=== PATIENT | female | born 1935 | race Caucasian/White ===

== ENCOUNTER 2020-04-13 00:50 | Outpatient (CLI) | payer MEDICARE, SELFPAY ==
[2020-04-13 19:21] LABS: SARS-CoV-2 RNA PCR Negative
== END 2020-04-13 00:51 | disposition home or self-care (01) ==
LOC: ANHCOVIDDT 00:50
PROVIDERS: PCP Internal Medicine; Visit Provider Internal Medicine Gastroenterology
DX: Z01.812 Encounter for preprocedural laboratory examination (principal); Z20.828 Contact with and (suspected) exposure to other viral communicable diseases
CPT/HCPCS: 87635; C9803; U0003

== ENCOUNTER 2020-04-15 01:15 | Day surgery (SDC) | payer MEDICARE, SELFPAY ==
[2020-04-06 09:17] VITALS: BMI 31.2
--- NOTE | 2020-04-15 09:28 | WPDANESEPPF ---
Anes - Initial Pre Proc Eval Procedure: Operation Date: 04/15/20 10:00 Proposed Procedures p Esophagogastroduodenoscopy - Owen Watt MD Date/Time: 04/15/20 09:28 Surgeon: Owen Watt MD Pre Op Diagnosis: Gerd/ Chest Pain Patient Data Age: 85 Gender: F Height: 1.55 m Weight: 75 kg Allergies Allergy/AdvReac Type Severity Reaction Status Date / Time meperidine Allergy Unknown Unknown Verified 04/15/20 09:29 simvastatin Allergy Unknown Unknown Verified 04/15/20 09:29 Home Medications Medication Instructions Recorded Confirmed Type sitagliptin 100 mg tablet 100 mg PO DAILY #90 tablet 06/11/19 04/06/20 Rx aspirin 81 mg tablet,delayed 81 mg PO DAILY 08/03/19 04/06/20 History release calcium carb-ergocalciferol (vit tablet PO 08/03/19 03/24/20 History D2) 600 mg-125 unit tablet multivitamin 1 tablet PO DAILY 08/03/19 04/06/20 History omeprazole 40 mg capsule,delayed 40 mg PO BID 08/03/19 04/06/20 History release prednisolone sodium phosphate 10 10 mg PO DAILY 08/03/19 04/06/20 History mg disintegrating tablet amitriptyline 25 mg tablet 25 mg PO ONCE #90 tablet 09/15/19 04/06/20 Rx candesartan 32 mg tablet 32 mg PO DAILY #90 tablet 09/15/19 04/06/20 Rx amlodipine 5 mg tablet 5 mg PO DAILY #90 tablet 10/12/19 04/06/20 Rx cyclobenzaprine 10 mg tablet 10 mg PO TID PRN #90 tablet 10/14/19 04/06/20 Rx carvedilol 12.5 mg tablet See Rx Instructions .ROUTE 12/14/19 04/06/20 Rx .COMPLEX #180 tablet pravastatin 40 mg tablet 40 mg PO DAILY #90 tablet 01/25/20 04/06/20 Rx ferrous sulfate 325 mg (65 mg 325 mg PO DAILY 01/26/20 04/06/20 History iron) tablet furosemide 40 mg tablet 40 mg PO QAM 01/26/20 04/06/20 History Patient hx anesthesia problems: none Family hx anesthesia problems: none PMFSH Past Medical History Medical History (Updated 04/15/20 @ 09:31 by Bandar Obrien MD) Anxiety Arthritis Cancer breast, s/p mastectomy Essential (primary) hypertension Gastroesophageal reflux disease Left leg swelling Mixed hyperlipidemia Obesity Rupture of left biceps tendon Type 2 diabetes mellitus with stage 1 chronic kidney disease A1c 6.08 aug 2019 Surgical History Surgical History Breast cancer right mastectomy December 2018 H/O shoulder surgery bilateral - jaydon Davis PAMELA Social History Social History Smoking status: Former smoker Second hand tobacco smoke exposure: No Smoking end date: 08/05/92 Alcohol intake: current Living arrangements: with family Anes - Eval Final PreProcedure Day of Procedure 04/15/20 09:28 Patient weight: obese Heart: regular rate and rhythm Lungs: clear to auscultation and normal air movement Airway: Mallampati scale class II Neurological: alert and oriented Last oral intake: >/= 8 hours ASA classification: III Emergent: no Anesthetic plan: proceed Anesthesia type and monitoring: general GIVS Informed Consent: The patient's anesthetic plan and its attendant risks and benefits were discussed with the patient/family/POA. Questions were solicited and answers provided to the satisfaction of the patient/family/POA.
[2020-04-15 09:32] VITALS: BP 169/75; PULSE 79; RESP 18; TEMP 36.6; O2SAT 99; BMI 31.8
--- NOTE | 2020-04-15 09:36 | WPDGICN ---
Assessment and Plan Assessment and plan (1) Atypical chest pain: Code(s): R07.89 - Other chest pain Status: Acute Assessment and Plan: Chest pain very suspicious for acid reflux. However this is poorly responsive to acid reducing proton pump inhibitors. Plan is for EGD to assess more thoroughly. Further recommendations after endoscopy. Plan to continue Prilosec 40 mg p.o. b.i.d. until that time. Consider the addition of Gas-X or simethicone or Carafate. (2) Gastroesophageal reflux disease: Code(s): K21.9 - Gastro-esophageal reflux disease without esophagitis Status: Acute (3) Malignant neoplasm of breast (female), unspecified site: Code(s): C50.919 - Malignant neoplasm of unspecified site of unspecified female breast Status: Acute GI Consult Note Consult date/time: 04/15/20 09:36 HPI: Vanesa Mcdonnell is a 85 year old female seen for evaluation of chest pain. Patient complains of chest pain prior abdominal E at night but occasionally happens during the day. Typically in the substernal area. She states it is sometimes burning in nature sometimes improves with Tums. It is not related to food intake. Patient has taken omeprazole twice a day for many years. Recently has been on Prilosec 40 mg p.o. b.i.d. with no change in frequency of symptoms. She does states pain improves after belching for instance. Recent history is significant for breast cancer status post mastectomy in January of 2019. Review of Systems Review of Systems: All systems reviewed & are unremarkable except as noted in HPI and below PMFSH Past Medical History Medical History Anxiety Arthritis Cancer breast, s/p mastectomy Essential (primary) hypertension Gastroesophageal reflux disease Left leg swelling Mixed hyperlipidemia Obesity Rupture of left biceps tendon Type 2 diabetes mellitus with stage 1 chronic kidney disease A1c 6.08 aug 2019 Surgical History Surgical History Breast cancer right mastectomy December 2018 H/O shoulder surgery bilateral - jaydon Davis Family History Family History Sibling Family history of malignant neoplasm of breast in first degree relative Mother Family history of heart disease in male family member before age 55 Social History Social History Smoking status: Former smoker Second hand tobacco smoke exposure: No Smoking end date: 08/05/92 Alcohol intake: current Living arrangements: with family Meds Home Medications and Allergies Home Medications Medication Instructions Recorded Confirmed Type sitagliptin 100 mg tablet 100 mg PO DAILY #90 tablet 06/11/19 04/06/20 Rx aspirin 81 mg tablet,delayed 81 mg PO DAILY 08/03/19 04/06/20 History release calcium carb-ergocalciferol (vit tablet PO 08/03/19 03/24/20 History D2) 600 mg-125 unit tablet multivitamin 1 tablet PO DAILY 08/03/19 04/06/20 History omeprazole 40 mg capsule,delayed 40 mg PO BID 08/03/19 04/06/20 History release prednisolone sodium phosphate 10 10 mg PO DAILY 08/03/19 04/06/20 History mg disintegrating tablet amitriptyline 25 mg tablet 25 mg PO ONCE #90 tablet 09/15/19 04/06/20 Rx candesartan 32 mg tablet 32 mg PO DAILY #90 tablet 09/15/19 04/06/20 Rx amlodipine 5 mg tablet 5 mg PO DAILY #90 tablet 10/12/19 04/06/20 Rx cyclobenzaprine 10 mg tablet 10 mg PO TID PRN #90 tablet 10/14/19 04/06/20 Rx carvedilol 12.5 mg tablet See Rx Instructions .ROUTE 12/14/19 04/06/20 Rx .COMPLEX #180 tablet pravastatin 40 mg tablet 40 mg PO DAILY #90 tablet 01/25/20 04/06/20 Rx ferrous sulfate 325 mg (65 mg 325 mg PO DAILY 01/26/20 04/06/20 History iron) tablet furosemide 40 mg tablet 40 mg PO QAM 01/26/20 04/06/20 History Allergies Allergy/AdvReac Type Severity
[2020-04-15] MEDS: LACTATED RINGERS 1,000 ML 150 ML IV CONT (09:51)
[2020-04-15] MEDS: BENZOCAINE (*SP) 60 ML SPRAY CAN (HURRICAINE) 1 SPRAY MUCOUS MEM (10:06)
[2020-04-15 10:33] VITALS: BP 145/70; PULSE 72; RESP 21; O2SAT 97
[2020-04-15 10:43] VITALS: BP 146/65; PULSE 73; RESP 21; O2SAT 95
[2020-04-15] MEDS: HEPARIN SOD FLUSH 500 UNITS/5 ML SYRINGE IV PUSH (11:05)
[2020-04-15] MEDS: CENTRAL LINE FLUSH 10 ML IV PUSH (11:06)
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
== END 2020-04-15 11:58 | disposition home or self-care (01) ==
PROVIDERS: PCP Internal Medicine; Visit Provider Internal Medicine Gastroenterology
PROC: 0DJ08ZZ Inspection of Upper Intestinal Tract, Via Natural or Artificial Opening Endoscopic (ICD-10-PCS; CPT 43235; principal; 2020-04-15 10:00)
DX: R07.89 Other chest pain (principal); K44.9 Diaphragmatic hernia without obstruction or gangrene; K21.9 Gastro-esophageal reflux disease without esophagitis; E78.2 Mixed hyperlipidemia; I12.9 Hypertensive chronic kidney disease with stage 1 through stage 4 chronic kidney disease, or unspecified chronic kidney disease; E11.22 Type 2 diabetes mellitus with diabetic chronic kidney disease; N18.1 Chronic kidney disease, stage 1; Z90.11 Acquired absence of right breast and nipple; Z85.3 Personal history of malignant neoplasm of breast; Z87.891 Personal history of nicotine dependence; Z79.82 Long term (current) use of aspirin; Z79.84 Long term (current) use of oral hypoglycemic drugs; E66.9 Obesity, unspecified; Z68.31 Body mass index [BMI] 31.0-31.9, adult
CPT/HCPCS: 43235; J2704; J7120

== ENCOUNTER 2020-06-17 14:43 | Inpatient (IN) | payer MEDICARE, SELFPAY ==
[2020-06-17] VITALS (11 sets, daily range): BP systolic 89–126; BP diastolic 41–68; PULSE 65–80; RESP 14–47; TEMP 36.2–37.1; O2SAT 93–99
--- NOTE | ~2020-06-17 | XR_ITS ---
XR chest 1V portable DATE: 06/17/2020 18:07 INDICATION: Shortness of breath, cough. Weakness. Technique 2 diabetes. Hypertension. TECHNIQUE: Portable AP upright view on 06/17/2020 at 1758 hours COMPARISON: None FINDINGS: There is cardiac magnet. There is aortic arch calcification. There is a left Port-A-Cath ca theter, the tip overlying the superior vena cava. There is no evidence of pneumothorax. There are patchy infiltrates bilaterally, most prominent in the mid to upper lung zones, right greate r than left, in addition to right lower lung infiltrate or atelectasis. There is mild elevation of the right leaf of diaphragm. There is diffuse osteopenia. IMPRESSION: Patchy bilateral pulmonary infiltrates Left Port-A-Cath catheter tip overlying superior vena cava Cardiomegaly, aortic atherosclerosis Reviewed, dictated and finalized at location A. [employer] SERVICES MANAGER
--- NOTE | ~2020-06-17 | XR_ITS ---
EXAMINATION: XR chest 1V portable DATE: 06/20/2020 10:35 INDICATION: COVID-19 pneumonia. TECHNIQUE: A single frontal view of the chest was obtained. COMPARISON: Chest single view 06/17/2020 FINDINGS: Again seen is mild elevation of right hemidiaphragm. There are airspace opacities in right mid and upper lung zones and left lower and upper lung zones. No pleural effusion or pneumothorax. Th e heart size is normal. There is a left internal jugular port with tip in superior vena cava. IMPRESSION: 1. Airspace opacities in right mid and upper lung zones and left lower and upper lung zones with inte rval improvement, consistent with pneumonia. Reviewed, dictated and finalized at location A. H COLORER IMPRESSION: 1. Airspace opacities in right mid and upper lung zones and left lower and uppe r lung zones with interval improvement, consistent with pneumonia.
--- NOTE | 2020-06-17 15:37 | ECG_ITS ---
Measurements Intervals Boring Rate: 70 P: 41 DE: 137 QRS: 32 QRSD: 78 T: 48 QT: 357 QTc: 387 Interpretive Statements SINUS RHYTHM WITH SINUS ARRHYTHMIA BORDERLINE R WAVE PROGRESSION, ANTERIOR LEADS BORDERLINE ECG Electronically Signed On 06-17-2020 16:44:55 RELIABILITY MANAGER by Errol Caballero D.O.
[2020-06-17 15:50] LABS: Basophils Percent Auto 0.1 % (0.2-1.2); Hematocrit 36.6 % (37.0-47.0); Hemoglobin 11.5 g/dL (12.0-15.0); Immature Granulocyte Absolute 0.04 K/mm3 (0.00-0.031); Immature Granulocyte Percent A 0.6 % (0-0.5); Lymphocytes Absolute Auto 1.02 K/mm3 (0.9-3.2); Lymphocytes Percent Auto 14.2 % (18.3-44.2); Mean Corpuscular HGB Conc 31.4 g/dl (32-36); Mean Corpuscular Hemoglobin 31.5 pg (26-34); Mean Corpuscular Volume 100.3 fl (80-100); Mean Platelet Volume 10.8 fl (7.4-10.4); Monocytes Absolute Auto 0.5 K/mm3 (0.1-0.6); Neutrophils Absolute Auto 5.6 K/mm3 (1.3-6.7); Neutrophils Percent Auto 78.1 % (45.5-73.1); Platelet Count Result 190 k/mm3 (150-375); Red Blood Count 3.65 M/mm3 (4.2-5.4); Red Cell Distribution Width 13.2 % (11.5-14.5); White Blood Count 7.2 K/mm3 (4.5-10.0)
[2020-06-17 16:04] LABS: Alanine Aminotransferase 24 U/L (4-35); Albumin Level 3.6 g/dL (3.5-5.1); Alkaline Phosphatase 75 U/L (38-126); Anion Gap 9 mmol/L (8-16); Aspartate Amino Transferase 45 U/L (14-36); Atypical Lymphocytes Present; Bilirubin,Total 0.6 mg/dL (0.2-1.3); Blood Urea Nitrogen 32 mg/dL (7-17); Calcium 8.6 mg/dL (8.4-10.2); Carbon Dioxide 27 mmol/L (22-30); Chloride 101 mmol/L (98-107); Estimated CRCL calculation 27 ml/min; Estimated Glomerular Filt Rate 36; Glucose 98 mg/dL (65-105); Platelet Estimate Adequate (Adequate); Potassium 4.3 mmol/L (3.4-5.0); Sodium 137 mmol/L (137-145)
--- NOTE | 2020-06-17 17:40 | ED.WEAKNESS ---
HPI - Weakness General Chief complaint: Shortness of Breath/Dyspnea Stated complaint: weakness/ SOB Time Seen by Provider: 06/17/20 17:39 History of Present Illness HPI Narrative: A few dyas of what she describes as cold symptoms including cough, headache, and fatigue. Began feeling SOB today. She says that she has not been exposed to anyone with COVID-19, but on further investigation it turns out that her spouse is currently in the hospital with COVID-19 pneumonia. Related Data Home Medications Medication Instructions Recorded Confirmed aspirin 81 mg tablet,delayed 81 mg PO DAILY 08/03/19 06/17/20 release calcium carb-ergocalciferol (vit 1 tablet PO DAILY 08/03/19 06/17/20 D2) 600 mg-125 unit tablet multivitamin 1 tablet PO DAILY 08/03/19 06/17/20 omeprazole 40 mg capsule,delayed 40 mg PO BID 08/03/19 06/17/20 release prednisolone sodium phosphate 10 10 mg PO DAILY 08/03/19 06/17/20 mg disintegrating tablet ferrous sulfate 325 mg (65 mg 325 mg PO DAILY 01/26/20 06/17/20 iron) tablet amitriptyline 25 mg PO DAILY 06/17/20 06/17/20 Allergies Allergy/AdvReac Type Severity Reaction Status Date / Time meperidine Allergy Unknown Unknown Verified 06/17/20 21:55 simvastatin Allergy Unknown Unknown Verified 06/17/20 21:55 gluten Allergy Diarrhea Verified 06/18/20 13:10 Review of Systems Review of Systems: All systems reviewed & are unremarkable except as noted in HPI and below Constitutional: Constitutional: Reports fatigue, Denies fever(s) and Reports weakness ENT: Denies sore throat Cardiovascular: Cardiovascular: Denies chest pain Respiratory: Respiratory: Reports chest congestion, Reports cough and Reports dyspnea Gastrointestinal: Gastrointestinal: Denies nausea and Denies vomiting Genitourinary: Genitourinary: Denies hematuria and Denies dysuria Musculoskeletal: Musculoskeletal: Reports myalgias Neurologic: Denies confusion and Reports weakness Endocrine: Endocrine: Reports fatigue and Denies polydipsia [facility] Past Medical History Medical History Anxiety Arthritis Cancer breast, s/p mastectomy Essential (primary) hypertension Gastroesophageal reflux disease Left leg swelling Mixed hyperlipidemia Obesity Right rotator cuff tear Rupture of left biceps tendon Type 2 diabetes mellitus with stage 1 chronic kidney disease A1c 6.08 aug 2019 Surgical History Surgical History Breast cancer right mastectomy December 2018 H/O shoulder surgery bilateral - jaydon Davis Family History Family History Sibling Family history of malignant neoplasm of breast in first degree relative Mother Family history of heart disease in male family member before age 55 Social History Social History Smoking status: Never smoker Second hand tobacco smoke exposure: No Smoking end date: 08/05/92 Alcohol intake: current Drinks per week: 2 Substance use: never Gender identity (if verbalized by the patient): Female Spiritual care concerns: No Exam Const: General: no acute distress, alert and ill appearing Orientation/consciousness: patient oriented x3 HENMT: Head: normal to inspection Neck: Neck: normal visual inspection and no lymphadenopathy Chest: Chest palpation & inspection: normal inspection of the chest and no tenderness Resp: Effort & Inspection: tachypneic Auscultation: crackles and rhonchi Cardio: Rate: regular rate Rhythm: regular rhythm GI: GI Palp: Yes Soft to palpation and No Tenderness to palpation present (GI) Skin: General skin exam: normal color Neuro: General: patient oriented x3, moves all extremities, no focal motor deficits and CN's II-XI intact bilaterally Speech: normal speech Extrem: General: no edema Course Vital S
--- NOTE | 2020-06-17 19:32 | PM.IMHP ---
H&P: HPI History of Present Illness Date/Time: 06/17/20 19:32 Chief complaint: SOB. Narrative: Vanesa Mcdonnell is a 85 year old female with PMHx significant for HTN, Hypercholesterolemia, that presented to ED due to sob, cough productive of green sputum for several days, is been admitted to the hospital with Covid 19. Has had fevers, chills, denies n/v/abdominal pain/diarrhea. Preliminary work up in ED showed extensive lung infiltrates on chest xr. Has had decreased appetite as well but no loss of sense of smell or taste. Review of Systems Review of Systems: Narrative: sob, productive cough. Constitutional: Constitutional: Reports chills, Reports fatigue, Reports fever(s) and Reports poor appetite Eyes: Eyes: Reports no additional eye complaints ENT: Comments: no sore throat, no nasal congestion, no ear ache. Cardiovascular: Comments: no chest pain, no leg swelling Respiratory: Comments: sob, productive cough. Gastrointestinal: Comments: no n/v/abdominal pain/diarrhea. Musculoskeletal: Comments: no joint pain or swelling. Integumentary/Breasts: Comments: no rashes. Neurologic: Comments: no sensory motor deficit. Hematologic/Lymphatic: Comments: No LAP PMFSH Past Medical History Medical History (Updated 06/17/20 @ 23:17 by Valerie Horner MD) Anxiety Arthritis Cancer breast, s/p mastectomy Essential (primary) hypertension Gastroesophageal reflux disease Left leg swelling Mixed hyperlipidemia Obesity Right rotator cuff tear Rupture of left biceps tendon Type 2 diabetes mellitus with stage 1 chronic kidney disease A1c 6.08 aug 2019 Surgical History Surgical History Breast cancer right mastectomy December 2018 H/O shoulder surgery bilateral - jaydon Davis Family History Family History Sibling Family history of malignant neoplasm of breast in first degree relative Mother Family history of heart disease in male family member before age 55 Social History Social History Smoking status: Never smoker Second hand tobacco smoke exposure: No Smoking end date: 08/05/92 Alcohol intake: current Drinks per week: 2 Substance use: never Gender identity (if verbalized by the patient): Female Spiritual care concerns: No Meds Home Medications and Allergies Home Medications Medication Instructions Recorded Confirmed Type sitagliptin 100 mg tablet 100 mg PO DAILY #90 tablet 06/11/19 06/17/20 Rx aspirin 81 mg tablet,delayed 81 mg PO DAILY 08/03/19 06/17/20 History release calcium carb-ergocalciferol (vit 1 tablet PO DAILY 08/03/19 06/17/20 History D2) 600 mg-125 unit tablet multivitamin 1 tablet PO DAILY 08/03/19 06/17/20 History omeprazole 40 mg capsule,delayed 40 mg PO BID 08/03/19 06/17/20 History release prednisolone sodium phosphate 10 10 mg PO DAILY 08/03/19 06/17/20 History mg disintegrating tablet carvedilol 12.5 mg tablet See Rx Instructions .ROUTE 12/14/19 06/17/20 Rx .COMPLEX #180 tablet pravastatin 40 mg tablet 40 mg PO DAILY #90 tablet 01/25/20 06/17/20 Rx ferrous sulfate 325 mg (65 mg 325 mg PO DAILY 01/26/20 06/17/20 History iron) tablet amlodipine 5 mg tablet 5 mg PO DAILY #90 tablet 04/26/20 06/17/20 Rx cyclobenzaprine 10 mg tablet 10 mg PO TID PRN #90 tablet 05/17/20 06/17/20 Rx candesartan 32 mg tablet 32 mg PO DAILY #90 tablet 05/27/20 06/17/20 Rx furosemide 40 mg tablet 40 mg PO QAM #30 tablet 05/27/20 06/17/20 Rx amitriptyline 25 mg PO DAILY 06/17/20 06/17/20 History Allergies Allergy/AdvReac Type Severity Reaction Status Date / Time meperidine Allergy Unknown Unknown Verified 06/17/20 21:55 simvastatin Allergy Unknown Unknown Verified 06/17/20 21:55 Vital Signs Vital Signs - 24 hr 06/17/20 15:25 06/17/20 17:40 06/17/20 17:41 Temperature 98.7 F Pulse Rate
[2020-06-17] MEDS: ALBUTEROL SULFATE (*SP) AEROSOL 1 PUFF 2 PUFF INHALATION (19:42)
[2020-06-17] MEDS: DEXAMETHASONE SOD PHOS INJ 4 MG/ML VIAL 6 MG IV PUSH (20:03)
--- NOTE | 2020-06-17 21:20 | PC.NURSE ---
This patient, Vanesa Mcdonnell, was admitted to [facility] Surg Room 321-01. Patient/family oriented to hospital policies and general routines including ID bracelet, bed and alarms, visiting hours, pain management, procedures, bathroom and other care routines, personal items, smoking policy, room service/diet, and visiting hours. Information on how to activate the Rapid Response Team has been discussed. Patient/Family are encouraged to report perceived risks to care and to ask questions if they do not understand what they are told or what they should do.
[2020-06-17] MEDS: carvediloL 12.5 MG TABLET BY MOUTH (22:43)
[2020-06-17] MEDS: HEPARIN SODIUM 5,000 UNITS/ML VIAL 5000 UNITS SUB-Q (22:43)
[2020-06-18] VITALS (10 sets, daily range): BP systolic 97–127; BP diastolic 48–90; PULSE 60–770; RESP 18–20; TEMP 36.1–36.7; O2SAT 92–98
[2020-06-18 06:25] LABS: Basophils Percent Auto 0.3 % (0.2-1.2); Hematocrit 33.1 % (37.0-47.0); Hemoglobin 10.4 g/dL (12.0-15.0); Immature Granulocyte Absolute 0.03 K/mm3 (0.00-0.031); Immature Granulocyte Percent A 0.8 % (0-0.5); Lymphocytes Absolute Auto 0.48 K/mm3 (0.9-3.2); Lymphocytes Percent Auto 12.5 % (18.3-44.2); Mean Corpuscular HGB Conc 31.4 g/dl (32-36); Mean Corpuscular Hemoglobin 31.7 pg (26-34); Mean Corpuscular Volume 100.9 fl (80-100); Mean Platelet Volume 10.7 fl (7.4-10.4); Monocytes Absolute Auto 0.1 K/mm3 (0.1-0.6); Monocytes Percent Auto 2.3 % (2.6-8.5); Neutrophils Absolute Auto 3.2 K/mm3 (1.3-6.7); Neutrophils Percent Auto 84.1 % (45.5-73.1); Platelet Count Result 182 k/mm3 (150-375); Red Blood Count 3.28 M/mm3 (4.2-5.4); Red Cell Distribution Width 13.2 % (11.5-14.5); White Blood Count 3.8 K/mm3 (4.5-10.0)
[2020-06-18 06:39] LABS: Alanine Aminotransferase 22 U/L (4-35); Albumin Level 3.2 g/dL (3.5-5.1); Alkaline Phosphatase 69 U/L (38-126); Anion Gap 7 mmol/L (8-16); Aspartate Amino Transferase 40 U/L (14-36); Bilirubin,Total 0.4 mg/dL (0.2-1.3); Blood Urea Nitrogen 34 mg/dL (7-17); Calcium 8.3 mg/dL (8.4-10.2); Carbon Dioxide 27 mmol/L (22-30); Chloride 100 mmol/L (98-107); Estimated CRCL calculation 29 ml/min; Estimated Glomerular Filt Rate 43; Glucose 183 mg/dL (65-105); Potassium 4.7 mmol/L (3.4-5.0); Sodium 134 mmol/L (137-145)
[2020-06-18] MEDS: amLODIPine BESYLATE 5 MG TABLET PO (08:47)
[2020-06-18] MEDS: AMITRIPTYLINE HCL 25 MG TABLET PO (08:47)
[2020-06-18] MEDS: CANDESARTAN CILEXETIL 16 MG TABLET 32 MG PO (08:48)
[2020-06-18] MEDS: PANTOPRAZOLE 40 MG TABLET PO ×2 (08:49→15:59)
[2020-06-18] MEDS: HEPARIN SODIUM 5,000 UNITS/ML VIAL 5000 UNITS SUB-Q ×2 (08:49→21:21)
[2020-06-18] MEDS: carvediloL 12.5 MG TABLET BY MOUTH ×2 (09:19→21:22)
[2020-06-18] MEDS: ALBUTEROL SULFATE (*SP) AEROSOL 1 PUFF 2 PUFF INHALATION ×3 (09:44→17:44)
[2020-06-18 13:19] LABS: SARS-CoV-2 RNA PCR Positive
[2020-06-18] MEDS: DEXAMETHASONE SOD PHOS INJ 4 MG/ML VIAL 6 MG IV PUSH (13:40)
[2020-06-18] MEDS: LOPERAMIDE HCL 2 MG CAPSULE PO (16:12)
--- NOTE | 2020-06-18 16:37 | PM.IMPN ---
Progress Note: A&P Assessment and Plan (1) Essential (primary) hypertension: Code(s): I10 - Essential (primary) hypertension Status: Acute Assessment and Plan: Continue home meds Continue to monitor (2) Type 2 diabetes mellitus with stage 1 chronic kidney disease: Code(s): E11.22 - Type 2 diabetes mellitus with diabetic chronic kidney disease; N18.1 - Chronic kidney disease, stage 1 Status: Acute Assessment and Plan: Carb consistent diet Accuchecks achs (3) Polymyalgia rheumatica: Code(s): M35.3 - Polymyalgia rheumatica Status: Acute Assessment and Plan: Stable (4) Multilobar lung infiltrate: Code(s): R91.8 - Other nonspecific abnormal finding of lung field Status: Acute Assessment and Plan: Started Rocephin and Zithromax due to extensive infiltrates Known close Covid 19 Awaiting Covid results Supportive care. 06/18/20 16:37 Patient is 85-year-old female with history of hypertension patient residing with her partner was positive for COVID-19 and currently in the hospital, patient presented with a productive cough with green sputum, shortness of breath, has had fever, patient positive COVID 9, currently patient states is feeling much better compared to when she arrived as patient was started on dexamethasone from emergency depart and chest x-ray showed infiltrate and patient was started on Rocephin azithromycin, is elderly suspect patient may have silent aspiration will add a Flagyl to her regimen, will continue to monitor the patient patient has not had fever while in the hospital and not requiring any oxygen, will continue to monitor further recommendation to follow Subjective Date/time seen: 06/18/20 16:37 Patient is 85-year-old female with history of hypertension patient residing with her partner was positive for COVID-19 and currently in the hospital, patient presented with a productive cough with green sputum, shortness of breath, has had fever, patient positive COVID 9, currently patient states is feeling much better compared to when she arrived as patient was started on dexamethasone from emergency depart and chest x-ray showed infiltrate and patient was started on Rocephin azithromycin, is elderly suspect patient may have silent aspiration will add a Flagyl to her regimen, will continue to monitor the patient patient has not had fever while in the hospital and not requiring any oxygen, will continue to monitor further recommendation to follow Review of Systems Review of Systems: All systems reviewed & are unremarkable except as noted in HPI and below Exam Narrative: Exam Narrative: Elderly frail Patient is comfortable, NAD HEENT: eyes are clear and none icteric LUNGS: Bilateral fair air entry with rhonchi HEART: RR S1S2 ABD: BS+, Soft and nontender Lower extremities: no edema SKIN: nonjaundiced Neuro: grossly intact. Objective Data Vital Signs Vital Signs: Vital Signs - 24 hr 06/17/20 17:40 06/17/20 17:41 06/17/20 17:42 Temperature Pulse Rate 73 74 71 Respiratory Rate 25 H 25 H Blood Pressure 126/63 126/63 Pulse Oximetry 98 99 06/17/20 17:54 06/17/20 18:31 06/17/20 19:00 Temperature Pulse Rate 79 Respiratory Rate 47 H 27 H Blood Pressure 89/68 L Pulse Oximetry 93 95 97 06/17/20 19:32 06/17/20 20:58 06/17/20 21:20 Temperature 97.2 F L Pulse Rate 72 65 65 Respiratory Rate 26 H 20 18 Blood Pressure 107/48 L 126/54 L 111/41 L Pulse Oximetry 95 95 99 06/17/20 22:43 06/18/20 00:00 06/18/20 01:09 Temperature 97.4 F L Pulse Rate 65 66 69 Respiratory Rate 18 Blood Pressure 97/58 L Pulse Oximetry 93 06/18/20 04:00 06/18/20 08:00 06/18/20 09:48 Temperature 97 F L 97.8 F Pulse Rate 72 60 Respiratory Rate 18 18 Blood Pressure 127/48 L 123/50 L Pulse Oximetry 95 98 92 06/18/20 12:00 Temperature 98.0 F Pulse Rate 71 Respiratory Rate 20 Blood Pressure 127/81 Pulse Oximetry 93
[2020-06-18] MEDS: metroNIDAZOLE 500 MG/ISO 100ML 500 MG/100 ML BAG 100 MG IVPB (20:02)
[2020-06-19] VITALS (9 sets, daily range): BP systolic 107–139; BP diastolic 51–67; PULSE 60–84; RESP 18–36; TEMP 36.3–36.7; O2SAT 92–98
[2020-06-19] MEDS: metroNIDAZOLE 500 MG/ISO 100ML 500 MG/100 ML BAG 100 MG IVPB ×4 (00:32→16:37)
[2020-06-19] MEDS: ALBUTEROL SULFATE (*SP) AEROSOL 1 PUFF 2 PUFF INHALATION ×4 (08:16→22:28)
[2020-06-19] MEDS: CANDESARTAN CILEXETIL 16 MG TABLET 32 MG PO (09:08)
[2020-06-19] MEDS: AMITRIPTYLINE HCL 25 MG TABLET PO (09:09)
[2020-06-19] MEDS: amLODIPine BESYLATE 5 MG TABLET PO (09:09)
[2020-06-19] MEDS: carvediloL 12.5 MG TABLET BY MOUTH ×2 (09:10→20:13)
[2020-06-19] MEDS: DEXAMETHASONE SOD PHOS INJ 4 MG/ML VIAL 6 MG IV PUSH (09:11)
[2020-06-19] MEDS: HEPARIN SODIUM 5,000 UNITS/ML VIAL 5000 UNITS SUB-Q ×2 (09:12→20:13)
[2020-06-19] MEDS: PANTOPRAZOLE 40 MG TABLET PO ×2 (09:16→16:36)
[2020-06-19] MEDS: LOPERAMIDE HCL 2 MG CAPSULE PO (11:46)
[2020-06-19 13:09] LABS: Troponin I < 0.012 ng/mL (0.000-0.034)
--- NOTE | 2020-06-19 15:09 | PM.IMPN ---
Progress Note: A&P Assessment and Plan (1) Essential (primary) hypertension: Code(s): I10 - Essential (primary) hypertension Status: Acute Assessment and Plan: Continue home meds Continue to monitor (2) Type 2 diabetes mellitus with stage 1 chronic kidney disease: Code(s): E11.22 - Type 2 diabetes mellitus with diabetic chronic kidney disease; N18.1 - Chronic kidney disease, stage 1 Status: Acute Assessment and Plan: Carb consistent diet Accuchecks achs (3) Polymyalgia rheumatica: Code(s): M35.3 - Polymyalgia rheumatica Status: Acute Assessment and Plan: Stable (4) Multilobar lung infiltrate: Code(s): R91.8 - Other nonspecific abnormal finding of lung field Status: Acute Assessment and Plan: Started Rocephin and Zithromax due to extensive infiltrates Known close Covid 19 Awaiting Covid results Supportive care. 06/19/20 15:09 Patient is 85-year-old female with history of hypertension patient residing with her partner was positive for COVID-19 and currently in the hospital, patient presented with a productive cough with green sputum, shortness of breath, has had fever, patient positive COVID 9, currently patient states is feeling much better compared to when she arrived as patient was started on dexamethasone from emergency depart and chest x-ray showed infiltrate and patient was started on Rocephin azithromycin, is elderly suspect patient may have silent aspiration will add a Flagyl to her regimen, will continue to monitor the patient patient has not had fever while in the hospital and not requiring any oxygen, repeat chest x-ray tomorrow if there is improvement patient clinically stable may discharge home tomorrow, will continue to monitor further recommendation to follow Subjective Date/time seen: 06/19/20 15:09 Patient is 85-year-old female with history of hypertension patient residing with her partner was positive for COVID-19 and currently in the hospital, patient presented with a productive cough with green sputum, shortness of breath, has had fever, patient positive COVID 9, currently patient states is feeling much better compared to when she arrived as patient was started on dexamethasone from emergency depart and chest x-ray showed infiltrate and patient was started on Rocephin azithromycin, is elderly suspect patient may have silent aspiration will add a Flagyl to her regimen, will continue to monitor the patient patient has not had fever while in the hospital and not requiring any oxygen, repeat chest x-ray tomorrow if there is improvement patient clinically stable may discharge home tomorrow, will continue to monitor further recommendation to follow Review of Systems Review of Systems: All systems reviewed & are unremarkable except as noted in HPI and below Exam Narrative: Exam Narrative: Elderly frail Patient is comfortable, NAD HEENT: eyes are clear and none icteric LUNGS: Bilateral fair air entry with rhonchi HEART: RR S1S2 ABD: BS+, Soft and nontender Lower extremities: no edema SKIN: nonjaundiced Neuro: grossly intact. Objective Data Vital Signs Vital Signs: Vital Signs - 24 hr 06/18/20 16:00 06/18/20 17:03 06/18/20 20:00 Temperature 97.5 F L 98.1 F Pulse Rate 68 77 80 Respiratory Rate 18 20 20 Blood Pressure 118/90 126/56 L Pulse Oximetry 94 93 94 06/18/20 21:22 06/19/20 00:00 06/19/20 04:00 Temperature 97.7 F 97.7 F Pulse Rate 78 68 64 Respiratory Rate 20 18 Blood Pressure 139/58 L 125/57 L Pulse Oximetry 94 92 06/19/20 08:00 06/19/20 08:16 06/19/20 12:00 Temperature 97.5 F L Pulse Rate 78 68 Respiratory Rate 18 Blood Pressure 107/67 Pulse Oximetry 92 92 Intake/Output Intake/Output: Intake & Output 06/16/20 06/17/20 06/18/20 06/19/20 23:59 23:59 23:59 23:59 Intake Total 100 1880 940 Output Total 200 900 Balance 100 1680 40 Meds/Results Medications: Active Medications
[2020-06-19] MEDS: ALPRAZolam (*CRX) 0.25 MG TABLET PO (20:13)
[2020-06-20] VITALS (8 sets, daily range): BP systolic 131–144; BP diastolic 49–58; PULSE 60–90; RESP 18–24; TEMP 36.1–36.8; O2SAT 94–97
[2020-06-20] MEDS: metroNIDAZOLE 500 MG/ISO 100ML 500 MG/100 ML BAG 100 MG IVPB ×3 (00:20→12:57)
[2020-06-20] MEDS: ALBUTEROL SULFATE (*SP) AEROSOL 1 PUFF 2 PUFF INHALATION ×3 (08:29→15:56)
[2020-06-20] MEDS: PANTOPRAZOLE 40 MG TABLET PO ×2 (09:14→17:09)
[2020-06-20] MEDS: CANDESARTAN CILEXETIL 16 MG TABLET 32 MG PO (09:15)
[2020-06-20] MEDS: amLODIPine BESYLATE 5 MG TABLET PO (09:15)
[2020-06-20] MEDS: AMITRIPTYLINE HCL 25 MG TABLET PO (09:16)
[2020-06-20] MEDS: DEXAMETHASONE SOD PHOS INJ 4 MG/ML VIAL 6 MG IV PUSH (09:17)
[2020-06-20] MEDS: HEPARIN SODIUM 5,000 UNITS/ML VIAL 5000 UNITS SUB-Q (09:17)
[2020-06-20] MEDS: carvediloL 12.5 MG TABLET BY MOUTH (09:18)
[2020-06-20 11:54] LABS: Basophils Percent Auto 0.1 % (0.2-1.2); Hemoglobin 10.2 g/dL (12.0-15.0); Immature Granulocyte Absolute 0.27 K/mm3 (0.00-0.031); Immature Granulocyte Percent A 1.8 % (0-0.5); Mean Corpuscular HGB Conc 31.9 g/dl (32-36); Mean Corpuscular Hemoglobin 31.9 pg (26-34); Mean Platelet Volume 10.4 fl (7.4-10.4); Monocytes Absolute Auto 0.7 K/mm3 (0.1-0.6); Monocytes Percent Auto 4.8 % (2.6-8.5); Neutrophils Absolute Auto 13.2 K/mm3 (1.3-6.7); Neutrophils Percent Auto 89.3 % (45.5-73.1); Platelet Count Result 244 k/mm3 (150-375); White Blood Count 14.9 K/mm3 (4.5-10.0)
[2020-06-20 12:03] LABS: Alanine Aminotransferase 25 U/L (4-35); Albumin Level 3.1 g/dL (3.5-5.1); Alkaline Phosphatase 65 U/L (38-126); Anion Gap 7 mmol/L (8-16); Aspartate Amino Transferase 34 U/L (14-36); Bilirubin,Total 0.4 mg/dL (0.2-1.3); Blood Urea Nitrogen 28 mg/dL (7-17); CRP 2.8 mg/dL (<1.0); Calcium 8.5 mg/dL (8.4-10.2); Carbon Dioxide 25 mmol/L (22-30); Chloride 104 mmol/L (98-107); Estimated CRCL calculation 35 ml/min; Estimated Glomerular Filt Rate 53; Glucose 235 mg/dL (65-105); Potassium 4.2 mmol/L (3.4-5.0); Sodium 136 mmol/L (137-145)
--- NOTE | 2020-06-20 12:23 | P.CDI_ITS ---
CDI Query Clarification Request - CXR impression consistent with pneumonia - productive cough with green sputum, shortness of breath documented - Progress note problem multilobar lung infiltrate - Covid 19 test is positive Please clarify if there is a diagnosis for multilobar lung infiltrate . * Covid 19 * Covid 19 with pneumonia * Pneumonia of other cause * Other * Unable to determine <Cheri Wilder RN - Last Filed: 06/20/20 12:28> Clarified Diagnosis (1) Aspiration pneumonia: Code(s): J69.0 - Pneumonitis due to inhalation of food and vomit <Cheri Wilder RN - Last Filed: 06/20/20 12:28> Status: Acute <Cheri Wilder RN - Last Filed: 06/20/20 12:28> Assessment and Plan: Multilobar lung infiltrates most likely 2/2 aspiration pneumonia and patient was treated with Flagyl, Rocehphin and zithromax, and discharge home on augmentin and doxycyclin. <Madhu Saba MD - Last Filed: 07/04/20 09:01>
[2020-06-20] MEDS: CENTRAL LINE FLUSH 10 ML IV PUSH (14:12)
--- NOTE | 2020-06-20 16:15 | PM.DS ---
DS: Admitting Diagnosis Admitting Diagnosis Admitting Diagnosis: SOB. DS: Discharge Diagnosis Discharge Diagnosis (1) Essential (primary) hypertension: Code(s): I10 - Essential (primary) hypertension Status: Acute Assessment and Plan: Continue home meds Continue to monitor (2) Type 2 diabetes mellitus with stage 1 chronic kidney disease: Code(s): E11.22 - Type 2 diabetes mellitus with diabetic chronic kidney disease; N18.1 - Chronic kidney disease, stage 1 Status: Acute Assessment and Plan: Carb consistent diet Accuchecks achs (3) Polymyalgia rheumatica: Code(s): M35.3 - Polymyalgia rheumatica Status: Acute Assessment and Plan: Stable (4) Multilobar lung infiltrate: Code(s): R91.8 - Other nonspecific abnormal finding of lung field Status: Acute Assessment and Plan: Started Rocephin and Zithromax due to extensive infiltrates Known close Covid 19 Awaiting Covid results Supportive care. 06/19/20 15:09 Patient is 85-year-old female with history of hypertension patient residing with her partner was positive for COVID-19 and currently in the hospital, patient presented with a productive cough with green sputum, shortness of breath, has had fever, patient positive COVID 9, currently patient states is feeling much better compared to when she arrived as patient was started on dexamethasone from emergency depart and chest x-ray showed infiltrate and patient was started on Rocephin azithromycin, is elderly suspect patient may have silent aspiration will add a Flagyl to her regimen, will continue to monitor the patient patient has not had fever while in the hospital and not requiring any oxygen, repeat chest x-ray tomorrow if there is improvement patient clinically stable may discharge home tomorrow, will continue to monitor further recommendation to follow DS: Summary Hospital Course Reason for hospitalization: Chief complaint: SOB. Narrative: Vanesa Mcdonnell is a 85 year old female with PMHx significant for HTN, Hypercholesterolemia, that presented to ED due to sob, cough productive of green sputum for several days, is been admitted to the hospital with Covid 19. Has had fevers, chills, denies n/v/abdominal pain/diarrhea. Preliminary work up in ED showed extensive lung infiltrates on chest xr. Has had decreased appetite as well but no loss of sense of smell or taste. Hospital Course: Patient is 85-year-old female with history of hypertension patient residing with her partner was positive for COVID-19 and currently in the hospital, patient presented with a productive cough with green sputum, shortness of breath, has had fever, patient positive COVID 9, currently patient states is feeling much better compared to when she arrived as patient was started on dexamethasone from emergency depart and chest x-ray showed infiltrate and patient was started on Rocephin azithromycin, is elderly suspect patient may have silent aspiration will add a Flagyl to her regimen, will continue to monitor the patient patient has not had fever while in the hospital and not requiring any oxygen, repeat chest x-ray tomorrow if there is improvement patient clinically stable may discharge home tomorrow, will continue to monitor further recommendation to follow. Repeat chest x-ray showed much improvement, it is clinically stable, and has not had a fever for 2 days and is not requiring any oxygen, will discharge the patient home today on oral antibiotic Augmentin and doxycycline for 7 days, patient instructed to follow follow up with her primary care provider as soon as possible. Status at Discharge Functional status at discharge: independent ambulation Overall status at discharge: patient is back to baseline Time Spent with Patient Time attestation: Total time spent providing and/or coordinating discharge services: Patient was seen and examined at the time of the discharge Condition at discharg
[2020-06-20] MEDS: HEPARIN SOD FLUSH 500 UNITS/5 ML SYRINGE IV PUSH (17:09)
== END 2020-06-20 18:45 | disposition home or self-care (01) | DRG 177 ==
LOC: ANHED 18:00 → ANH3MEDSUR 23:01
PROVIDERS: Admitting Provider Internal Medicine; Emergency Provider Emergency Medicine; PCP Internal Medicine; Visit Provider Family Medicine
DX: U07.1 COVID-19 (principal); J69.0 Pneumonitis due to inhalation of food and vomit; J12.89 Other viral pneumonia; E11.22 Type 2 diabetes mellitus with diabetic chronic kidney disease; M35.3 Polymyalgia rheumatica; R91.8 Other nonspecific abnormal finding of lung field; I12.9 Hypertensive chronic kidney disease with stage 1 through stage 4 chronic kidney disease, or unspecified chronic kidney disease; N18.1 Chronic kidney disease, stage 1; E78.2 Mixed hyperlipidemia; K21.9 Gastro-esophageal reflux disease without esophagitis; Z79.82 Long term (current) use of aspirin; Z79.899 Other long term (current) drug therapy; Z85.3 Personal history of malignant neoplasm of breast
CPT/HCPCS: 36415; 71045; 80053; 84484; 85025; 86140; 87635; 93005; 94640; 99285; A9270; C9803; J0456; J0696; J1100; J1642; J1644; U0003

== ENCOUNTER 2020-09-17 17:08 | Emergency (ER) | payer MEDICARE, SELFPAY ==
--- NOTE | ~2020-09-17 | CT_ITS ---
EXAMINATION: CT cervical spine wo con DATE: 09/17/2020 17:50 INDICATION: Head injury post fall on concrete. TECHNIQUE: Computed tomography (CT) of the cervical spine was performed without intravenous contrast. Automated exposure control and iterative reconstruction technique were employed. The dose-length pro duct was 346.65 mGy-cm. COMPARISON: Cervical spine MR dated 10/15/2014 FINDINGS: Mild lower cervical dextrocurvature. Sagittal alignment is normal. Vertebral body heights are normal. No fracture. Moderate to severe disc height loss at C6-C7. Mild disc height loss at C3-C4 through C5 -C6. Disc bulges at C2-C3 and posterior disc osteophyte complex at C3-C4 and C6-C7 resulting in mild central canal stenosis. Multilevel mild to moderate uncovertebral osteoarthritis and severe cervical facet osteoarthritis resulting in multilevel minimal to mild neural foraminal stenosis. Atherosclerot ic calcification at the bilateral carotid bulbs. Cervical soft tissues are otherwise unremarkable. Mi ld biapical pleural-parenchymal scarring. IMPRESSION: 1. Moderate cervical spondylosis. No acute osseous abnormality. Reviewed, dictated and finalized at location A. [employer] [facility]
--- NOTE | ~2020-09-17 | CT_ITS ---
EXAMINATION: CT brain wo con DATE: 09/17/2020 17:50 INDICATION: Posterior head injury post fall TECHNIQUE: Computed tomography (CT) of the head was performed without intravenous contrast. Sagittal and coronal reconstructions were performed. The mA was adjusted according to patient size. Iterative reconstruction technique was employed. The dose-length product was 605.33 mGy-cm. COMPARISON: head CT dated 05/27/17 FINDINGS: Left parietal scalp hematoma. No fracture. No acute intracranial hemorrhage, acute infarction or abno rmal extra axial fluid collection. There is mild scattered white matter hypoattenuation consistent wi th chronic small vessel ischemic disease. Symmetric prominence of the sulci consistent with mild age- appropriate diffuse cerebral volume loss. Ventricles are normal and symmetric. No mass/mass effect. C hanges of bilateral intraocular lens replacement. The orbits, paranasal sinuses and mastoid air cells are normal. Intracranial calcified cerebral atherosclerosis is noted. IMPRESSION: 1. No fracture or acute intracranial process. 2. Age-related changes including mild diffuse volume loss and mild scattered white matter hypoattenua tion consistent with chronic small vessel ischemic disease. Reviewed, dictated and finalized at location A. [employer] IMPRESSION: 1. No fracture or acute intracranial process. 2. Age-related changes including mild diffuse volume loss and mild scattered wh ite matter hypoattenuation consistent with chronic small vessel ischemic diseas e.
[2020-09-17 17:02] VITALS: BP 151/79; PULSE 79; RESP 18; TEMP 36.7; O2SAT 97
--- NOTE | 2020-09-17 17:30 | ED.FALL ---
HPI - Fall General Chief Complaint: Fall Stated Complaint: fall/laceration Time Seen by Provider: 09/17/20 17:10 Source: patient Mode of arrival: ambulatory Limitations: no limitations History of Present Illness HPI Narrative: An 85-year-old lady comes into the emergency department tonight with complaints of a fall at home. Patient states she was walking up from her basement, either missed a step or lost her balance but fell backwards. Patient states that she fell back onto the concrete floor. Patient notes that her head bounced off the concrete. She denies any loss of consciousness. She does endorse pain in the back of her head and neck. She denies any numbness or tingling going down either of her extremities. Patient does also note that she has a small skin tear on the lateral side of her right calf. Related Data Home Medications Medication Instructions Recorded Confirmed aspirin 81 mg tablet,delayed 81 mg PO DAILY 08/03/19 07/22/20 release calcium carb-ergocalciferol (vit 1 tablet PO DAILY 08/03/19 07/22/20 D2) 600 mg-125 unit tablet multivitamin 1 tablet PO DAILY 08/03/19 07/22/20 omeprazole 40 mg capsule,delayed 40 mg PO BID 08/03/19 07/22/20 release prednisolone sodium phosphate 10 10 mg PO DAILY 08/03/19 07/22/20 mg disintegrating tablet ferrous sulfate 325 mg (65 mg 325 mg PO DAILY 01/26/20 07/22/20 iron) tablet amitriptyline 25 mg PO DAILY 06/17/20 07/22/20 Allergies Allergy/AdvReac Type Severity Reaction Status Date / Time meperidine Allergy Unknown Rash Verified 09/17/20 17:11 simvastatin Allergy Unknown Rash Verified 09/17/20 17:11 gluten Allergy Diarrhea Verified 09/17/20 17:11 Review of Systems Review of Systems: Narrative: CONSTITUTIONAL: Denies fever, chills, or sweats. EYES: Denies visual changes, redness, or discharge. ENT: Denies rhinorrhea, congestion, sore throat, or otalgia. CARDIOVASCULAR: Denies chest pain, palpitations, or edema. RESPIRATORY: Denies cough or dyspnea. GASTROINTESTINAL: Denies abdominal pain, nausea, vomiting, or diarrhea. GENITOURINARY: Denies dysuria or hematuria. SKIN: Denies rash or itching. MUSCULOSKELETAL: Denies back pain, joint pain, or myalgia. Pain in the back of the neck and head. NEUROLOGIC: Denies headache, numbness, dizziness, or weakness. PSYCHIATRIC: Denies anxiety or depression. [facility] Past Medical History Medical History Anxiety Arthritis Cancer breast, s/p mastectomy Essential (primary) hypertension Gastroesophageal reflux disease Left leg swelling Mixed hyperlipidemia Obesity Right rotator cuff tear Rupture of left biceps tendon Type 2 diabetes mellitus with stage 1 chronic kidney disease A1c 6.08 aug 2019 Surgical History Surgical History Breast cancer right mastectomy December 2018 H/O shoulder surgery bilateral - Ryan, jaydon SANTIAGO Family History Family History Sibling Family history of malignant neoplasm of breast in first degree relative Mother Family history of heart disease in male family member before age 55 Social History Social History Smoking status: Former smoker Second hand tobacco smoke exposure: No Smoking end date: 08/05/92 Alcohol intake: current Drinks per week: 2 Substance use: never Gender identity (if verbalized by the patient): Female Spiritual care concerns: No Exam Narrative: Exam Narrative: GENERAL: Well-appearing, well-nourished, and in no acute distress. HEAD: Cephalohematoma on the left crown. EYES: PERRLA and EOMI. ENT: Nares clear, no rhinorrhea or epistaxis. Mucous membranes moist. NECK: Supple. No adenopathy or masses. No carotid bruits or JVD CHEST: Clear to auscultation. No respiratory distress. No wheezes rales or rhonchi HEART: Regular rate and rhythm.
[2020-09-17] MEDS: TETANUS,DIPHTHERIA,AC PERTUSSIS ADULT (0.5 ML) BOOSTRIX IM (17:59)
[2020-09-17] MEDS: ACETAMINOPHEN 500 MG TABLET 1000 MG PO (18:09)
[2020-09-17 18:49] VITALS: BP 173/75; PULSE 72; RESP 17; O2SAT 97
[2020-09-17 20:25] VITALS: BP 162/80; PULSE 74; RESP 17; O2SAT 97
== END 2020-09-17 20:35 | disposition home or self-care (01) ==
PROVIDERS: Emergency Provider Emergency Medicine; PCP Internal Medicine
DX: S00.03XA Contusion of scalp, initial encounter (principal); E11.22 Type 2 diabetes mellitus with diabetic chronic kidney disease; N18.1 Chronic kidney disease, stage 1; I12.9 Hypertensive chronic kidney disease with stage 1 through stage 4 chronic kidney disease, or unspecified chronic kidney disease; M19.90 Unspecified osteoarthritis, unspecified site; F41.9 Anxiety disorder, unspecified; K21.9 Gastro-esophageal reflux disease without esophagitis; E78.2 Mixed hyperlipidemia; E66.9 Obesity, unspecified; Z68.30 Body mass index [BMI] 30.0-30.9, adult; Z85.3 Personal history of malignant neoplasm of breast; Z90.11 Acquired absence of right breast and nipple; Z79.82 Long term (current) use of aspirin; Z87.891 Personal history of nicotine dependence; M47.812 Spondylosis without myelopathy or radiculopathy, cervical region; Z23 Encounter for immunization; W10.9XXA Fall (on) (from) unspecified stairs and steps, initial encounter
CPT/HCPCS: 70450; 72125; 90471; 90715; 99284; A9270

== ENCOUNTER 2024-05-19 12:33 | Outpatient (CLI) | payer MEDICARE, SELFPAY | END 2024-05-19 12:34 | disposition home or self-care (01) | LOC: ANHBWCAUD 12:34 | PROVIDERS: PCP Nurse Practitioner; Visit Provider Otolaryngology | DX: H90.3 Sensorineural hearing loss, bilateral (principal) | CPT/HCPCS: 92557; 92567 ==